=== PATIENT | female | born 1955 | race Caucasian/White ===

== ENCOUNTER 2021-09-09 16:07 | Emergency (ER) | payer BC, OTHER ==
[~2021-09-09] VITALS: Ht 160 cm; Wt 47.2 kg
--- NOTE | 2021-09-09 16:30 | NUR ---
PT AMBULATORY TO ER BED 13 C/O GENERALIZED WEAKNESS, FEELING DEHYDRATED W/ CHILLS AND FEVER X 3 DAYS S/P COSMETIC EYE SURGERY. PT IS ALCO C/O R EAR INFECTION AND WAS PROVIDED W ANTIBIOTIC EAR DROPS. PT IS [employer]ATOR. STABLE VITALS. AWAITING MD RAMIREZ.
--- NOTE | 2021-09-09 16:51 | NUR ---
DR MCKAY AT BEDSIDE FOR EVAL.
[2021-09-09] MEDS ORDERED: ONDANSETRON HCL/PF 4 MG/2 ML VIAL ONE (16:56)
[2021-09-09] MEDS ORDERED: IV NS 0.9% 1,000 ML BAG IV ONE (17:00)
[2021-09-09] MEDS ORDERED: ONDANSETRON HCL/PF 4 MG/2 ML VIAL IVP ONE (17:00)
--- NOTE | 2021-09-09 17:00 | NUR ---
IV LINE STARTED BLOOD DRAWN AND SENT TO LAB. PT UNABLE TO PROVIDE URINE SAMPLE AT THIS TIME.
--- NOTE | 2021-09-09 17:14 | NUR ---
COVID AND INFLUENZA SWABS DONE AND SENT TO THE LAB
--- NOTE | 2021-09-09 17:20 | NUR ---
URINE COLLECTED AND SENT TO THE LAB
[2021-09-09 17:59] LABS: BASOPHILS # (AUTO) 0.1 K/uL (0.0-0.2); EOSINOPHILS % (AUTO) 1.3 % (0.0-6.0); HEMATOCRIT 44 % (33-45); HEMOGLOBIN 14.9 g/dL (11.5-14.8); LYMPHOCYTES # (AUTO) 1.6 K/uL (0.8-4.8); LYMPHOCYTES % (AUTO) 21.9 % (20.0-44.0); MEAN CORPUSCULAR HGB CONC 34 g/dl (31.0-36.0); MEAN CORPUSCULAR VOLUME 86 fL (82-100); MONOCYTES # (AUTO) 0.7 K/uL (0.1-1.30); NEUTROPHILS # (AUTO) 4.8 K/uL (1.8-8.9); NEUTROPHILS % (AUTO) 66.8 % (43.0-81.0); PLATELET COUNT (AUTO) 258 K/uL (150-450); RED BLOOD CELL COUNT(AUTO) 5.12 MIL/uL (4.0-5.2); WHITE BLOOD COUNT (AUTO) 7.2 K/uL (4.3-11.0)
[2021-09-09 18:22] LABS: CREATININE 1.1 mg/dL (0.6-1.3); POTASSIUM 4.7 mmol/L (3.5-5.1)
[2021-09-09 18:25] LABS: BILIRUBIN,URINE NEGATIVE (NEGATIVE); COLOR,URINE YELLOW (YELLOW); LEUKOCYTE ESTERASE ,URINE NEGATIVE (NEGATIVE); NITRITE, URINE NEGATIVE (NEGATIVE); PH,URINE 7.5 (5.0-8.0); PROTEIN,URINE NEGATIVE (NEGATIVE); UGLUCOSE NEGATIVE (NEGATIVE); UROBILINOGEN,URINE 0.2 EU/dL (0.2)
[2021-09-09 18:42] LABS: ALBUMIN 3.5 g/dL (3.4-5.0); BILIRUBIN,DIRECT 0.1 mg/dL (0.0-0.2); BILIRUBIN,TOTAL 0.4 mg/dL (0.2-1.0); TOTAL PROTEIN, SERUM 7.3 g/dL (6.4-8.2)
--- NOTE | 2021-09-09 19:35 | NUR ---
Patient discharged to home in stable condition. Written and verbal after care instructions given. Patient verbalizes understanding of instruction.
[2021-09-09 19:36] VITALS: BP 121/80
== END 2021-09-09 19:57 | disposition home or self-care (01) ==
LOC: ER 16:10
DX: B34.9 Viral infection, unspecified (principal); Z20.822 Contact with and (suspected) exposure to COVID-19; Z87.19 Personal history of other diseases of the digestive system; Z98.890 Other specified postprocedural states
CPT/HCPCS: 36415; 80048; 80076; 81003; 83690; 85025; 87426; 87804; 96361; 96374; 99284; C9803 ×2; J2405; J7030; U0003

== ENCOUNTER 2024-09-04 12:43 | Emergency (ER) | payer MEDICARE, BC ==
[~2024-09-04] VITALS: Ht 160 cm; Wt 52.2 kg
[2024-09-04 12:50] VITALS: TEMP 98.2
[2024-09-04] MEDS ORDERED: KETOROLAC TROMETHAMINE INJ 30 MG/ML VIAL ONE (13:40)
[2024-09-04] MEDS ORDERED: BACLOFEN (10 MG) 10 MG TABLET ONE (13:40)
[2024-09-04] MEDS: BACLOFEN (10 MG) 10 MG TABLET PO ONE (13:47)
[2024-09-04] MEDS: KETOROLAC TROMETHAMINE INJ 30 MG/ML VIAL IM ONE (13:48)
[2024-09-04] MEDS ORDERED: BACL10TA PO (15:02)
[2024-09-04] MEDS ORDERED: KETO10TA2 PO (15:02)
[2024-09-04 15:22] VITALS: BP 120/75; O2SAT 98
== END 2024-09-04 15:22 | disposition home or self-care (01) ==
LOC: ER 12:43
DX: M51.16 Intervertebral disc disorders with radiculopathy, lumbar region (principal); M47.26 Other spondylosis with radiculopathy, lumbar region; M48.061 Spinal stenosis, lumbar region without neurogenic claudication; Z88.5 Allergy status to narcotic agent; Z60.2 Problems related to living alone
CPT/HCPCS: 99285; 72131; 96372; J1885